=== PATIENT | male | born 1980 | race Hispanic/Latino ===

== ENCOUNTER → 2020-03-26 | Day surgery (SDC) | payer BC ==
[2020-03-23 16:51] LABS: BASOPHILS % 0.5 % (0.0-1.0); EOSINOPHILS # (AUTO) 0.1 (0.0-0.4); EOSINOPHILS % 1.7 % (0.0-6.0); HEMATOCRIT 43.4 % (38.2-49.6); HEMOGLOBIN 14.7 g/dL (14.0-18.0); LYMPHOCYTES # (AUTO) 2.2 (1.0-3.2); LYMPHOCYTES % 38.3 % (18.0-39.1); MEAN CORPUSCULAR HGB CONC 33.9 g/dL (31-35); MEAN CORPUSCULAR VOLUME 85.6 fL (81-99); MONOCYTES # (AUTO) 0.4 (0.2-0.8); MONOCYTES % 6.1 % (4.4-11.3); NEUTROPHILS # (AUTO) 3.1 (2.1-6.9); NEUTROPHILS % 53.1 % (38.7-80.0); PLATELET COUNT 200 x10e3/uL (140-360); RED BLOOD COUNT 5.07 x10e6/uL (4.3-5.7); RED CELL DISTRIBUTION WIDTH 12.1 % (11.7-14.4)
[2020-03-23 17:12] LABS: ANION GAP 16.3 mmol/L (8-16); BLOOD UREA NITROGEN 15 mg/dL (7-26); BUN/CREATININE RATIO 14 (6-25); CALCIUM 9.7 mg/dL (8.4-10.2); CARBON DIOXIDE 24 mmol/L (22-29); CHLORIDE 102 mmol/L (98-107); CREATININE, SERUM 1.04 mg/dL (0.72-1.25); EST GLOMERULAR FILTRATION RATE > 60 ML/MIN (60-); GLUCOSE 218 mg/dL (74-118); POTASSIUM 4.3 mmol/L (3.5-5.1); SODIUM 138 mmol/L (136-145)
[~2020-03-26] MED LIST: ASPIRIN81 MG PO; BUPIVACAINE 0.25% 30ML SDV ONE; GLIPIZIDE5 MG PO; LOVASTATIN40 MG PO; METFORMIN HCL500 MG PO
--- NOTE | 2020-03-26 12:36 | Operative Report ---
DATE OF PROCEDURE: 03/26/2020 SURGEON: Fili Chanel MD PREOPERATIVE DIAGNOSIS: Incarcerated umbilical hernia. POSTOPERATIVE DIAGNOSIS: Incarcerated umbilical hernia. OPERATION PERFORMED: Repair of incarcerated umbilical hernia with Ventralex patch. ANESTHESIA: General. COMPLICATIONS: None. ESTIMATED BLOOD LOSS: Minimal. DESCRIPTION OF PROCEDURE: With the patient lying in bed in the supine position under good general endotracheal anesthesia, the abdomen was prepped with Betadine solution and draped in the usual manner. A semilunar subumbilical incision was made. It was carried down through the subcutaneous tissue down to the fascia. The hernia sac was then identified and encircled circumferentially. The umbilicus was then detached from the hernia sac without opening up the hernia sac and the contents of the hernia sac were then reduced back to the intra-abdominal cavity. The preperitoneal space was then entered and a pocket was created without any difficulty. A medium-sized Ventralex patch was then placed in the preperitoneal space and deployed without any difficulty, and the defect was then closed transversely using interrupted sutures of 0 Ethibond anchoring the mesh with the repair. This gave us a satisfactory repair without any tension. The whole area was then thoroughly irrigated. Perfect hemostasis was ascertained. The fascia was infiltrated with 0.25% Marcaine solution. The umbilicus was then tacked back down to the midline fascia with 3-0 Vicryl. The subcutaneous tissue was approximated with 3-0 Vicryl and the skin was closed with interrupted vertical mattress sutures of 3-0 silk. A dressing was applied. The sponge, lap, and needle count was correct. The patient tolerated the procedure well and returned to the recovery room in stable condition. Fili Chanel MD JLR/MODL /[id number]
[2020-03-26 13:10] VITALS: BP 127/83
== END | disposition home or self-care (01) ==
LOC: OR 06:45
PROVIDERS: ATTEND Surgery
DX: K42.0 Umbilical hernia with obstruction, without gangrene (principal); E11.9 Type 2 diabetes mellitus without complications; I10 Essential (primary) hypertension; K21.9 Gastro-esophageal reflux disease without esophagitis; E78.5 Hyperlipidemia, unspecified; F17.210 Nicotine dependence, cigarettes, uncomplicated; Z01.810 Encounter for preprocedural cardiovascular examination; Z01.812 Encounter for preprocedural laboratory examination; Z20.828 Contact with and (suspected) exposure to other viral communicable diseases; Z79.84 Long term (current) use of oral hypoglycemic drugs; Z79.82 Long term (current) use of aspirin
CPT/HCPCS: 36415; 49587; 80048; 85025; 93005; C1781; U0002

== ENCOUNTER 2022-01-21 13:22 | Emergency (ER) | payer BC ==
[~2022-01-21] VITALS: Ht 172.7 cm; Wt 102.1 kg
[~2022-01-21 13:22] MED LIST changes: -BUPIVACAINE 0.25% 30ML SDV ONE
[2022-01-21] MEDS ORDERED: KETOROLAC TROMETHAMINE 30 MG/ML VIAL IV STA ×2 (13:39→15:44)
[2022-01-21] MEDS ORDERED: MECLIZINE HCL 12.5 MG TAB PO ONE ×2 (13:45→15:15)
[2022-01-21] MEDS ORDERED: SODIUM CHLORIDE 0.9% 1000ML 1,000 ML IV ONE (13:45)
[2022-01-21 13:49] LABS: BASOPHILS % 0.4 % (0.0-1.0); EOSINOPHILS # (AUTO) 0.1 (0.0-0.4); EOSINOPHILS % 1.5 % (0.0-6.0); HEMATOCRIT 41.4 % (38.2-49.6); HEMOGLOBIN 14.1 g/dL (14.0-18.0); LYMPHOCYTES % 36.4 % (18.0-39.1); MEAN CORPUSCULAR HEMOGLOBIN 29.6 pg (28-32); MEAN CORPUSCULAR HGB CONC 34.1 g/dL (31-35); MEAN CORPUSCULAR VOLUME 86.8 fL (81-99); MONOCYTES # (AUTO) 0.3 (0.2-0.8); MONOCYTES % 5.7 % (4.4-11.3); NEUTROPHILS % 55.8 % (38.7-80.0); PLATELET COUNT 194 x10e3/uL (140-360); RED BLOOD COUNT 4.77 x10e6/uL (4.3-5.7); RED CELL DISTRIBUTION WIDTH 11.9 % (11.7-14.4)
[2022-01-21 14:18] LABS: INR 0.97; PROTHROMBIN TIME 13.8 seconds (11.9-14.5)
[2022-01-21 14:20] LABS: ALANINE AMINOTRANSFERASE 27 IU/L (0-55); ALBUMIN/GLOBULIN RATIO 1.3 (0.8-2.0); ALKALINE PHOSPHATASE 38 IU/L (40-150); ANION GAP 16.3 mmol/L (8-16); BLOOD UREA NITROGEN 10 mg/dL (7-26); BUN/CREATININE RATIO 10 (6-25); CALCIUM 8.6 mg/dL (8.4-10.2); CARBON DIOXIDE 25 mmol/L (22-29); CHLORIDE 100 mmol/L (98-107); CREATINE KINASE 118 IU/L (30-200); CREATININE, SERUM 0.98 mg/dL (0.72-1.25); GLUCOSE 276 mg/dL (74-118); POTASSIUM 4.3 mmol/L (3.5-5.1); SODIUM 137 mmol/L (136-145)
[2022-01-21] MEDS ORDERED: MECLIZINE HCL25 MG PO (15:49)
== END 2022-01-21 16:08 | disposition home or self-care (01) ==
LOC: ER 13:29
DX: R42 Dizziness and giddiness (principal); I10 Essential (primary) hypertension; E11.65 Type 2 diabetes mellitus with hyperglycemia; E78.5 Hyperlipidemia, unspecified
CPT/HCPCS: 36415; 70450; 80053; 82550; 82553; 84484; 85025; 85610; 85730; 93005; 99282

== ENCOUNTER 2022-11-18 16:55 | Emergency (ER) | payer BC ==
[~2022-11-18] VITALS: Ht 172.7 cm; Wt 102.1 kg
[~2022-11-18 16:55] MED LIST changes: +MECLIZINE HCL25 MG PO
[2022-11-18] MEDS ORDERED: ONDANSETRON HCL INJ 2MG/ML 2ML 2 MG/ML VIAL IV STA (17:09)
[2022-11-18] MEDS ORDERED: SODIUM CHLORIDE 0.9% 1000ML 1,000 ML IV ONE (17:15)
[2022-11-18] MEDS ORDERED: Morphine 4mg INJECTION 4 MG/ML INJ IV ONE (17:15)
[2022-11-18 17:24] LABS: BASOPHILS % 0.3 % (0.0-1.0); EOSINOPHILS # (AUTO) 0.1 (0.0-0.4); EOSINOPHILS % 1.4 % (0.0-6.0); HEMATOCRIT 43.3 % (38.2-49.6); HEMOGLOBIN 14.9 g/dL (14.0-18.0); LYMPHOCYTES % 28.3 % (18.0-39.1); MEAN CORPUSCULAR HEMOGLOBIN 29.2 pg (28-32); MEAN CORPUSCULAR HGB CONC 34.4 g/dL (31-35); MEAN CORPUSCULAR VOLUME 84.7 fL (81-99); MONOCYTES # (AUTO) 0.5 (0.2-0.8); MONOCYTES % 6.8 % (4.4-11.3); NEUTROPHILS # (AUTO) 4.6 (2.1-6.9); NEUTROPHILS % 62.9 % (38.7-80.0); PLATELET COUNT 212 x10e3/uL (140-360); RED BLOOD COUNT 5.11 x10e6/uL (4.3-5.7); RED CELL DISTRIBUTION WIDTH 12.2 % (11.7-14.4)
[2022-11-18 17:40] LABS: ALBUMIN 4.5 g/dL (3.5-5.0); ALBUMIN/GLOBULIN RATIO 1.4 (0.8-2.0); ANION GAP 17.3 mmol/L (8-16); CALCIUM 9.8 mg/dL (8.4-10.2); CREATININE, SERUM 1.54 mg/dL (0.72-1.25); POTASSIUM 4.3 mmol/L (3.5-5.1)
[2022-11-18] MEDS ORDERED: IOPAMIDOL 370 MG/ML 100 ML INFUS..BTL INJ ONE (17:49)
[2022-11-18] MEDS ORDERED: ULTRAM 50MG50 MG PO (19:24)
[2022-11-18] MEDS ORDERED: ONDANSETRON ODT4 MG PO (19:35)
[2022-11-18 20:00] VITALS: BP 127/85; PULSE 74; RESP 18; TEMP 98.4; O2SAT 97
[2022-11-21] MEDS ORDERED: OZEMPIC2 MG/0.75 IJ (00:10)
[2022-11-21] MEDS ORDERED: ATORVASTATIN CA40 MG PO (00:10)
[2022-11-21] MEDS ORDERED: GLIMEPIRIDE4 MG PO (00:10)
== END 2022-11-18 19:39 | disposition home or self-care (01) ==
LOC: ER 17:23
DX: K82.9 Disease of gallbladder, unspecified (principal); K76.0 Fatty (change of) liver, not elsewhere classified; N28.9 Disorder of kidney and ureter, unspecified; R11.2 Nausea with vomiting, unspecified; K57.30 Diverticulosis of large intestine without perforation or abscess without bleeding; I10 Essential (primary) hypertension; E78.5 Hyperlipidemia, unspecified; E11.9 Type 2 diabetes mellitus without complications; Z79.84 Long term (current) use of oral hypoglycemic drugs; Z79.899 Other long term (current) drug therapy
CPT/HCPCS: 36415; 74177; 76705; 80053; 80320; 83690; 85025; 99284; C9113; J2270; J2405; J7030; Q9967